=== PATIENT | female | born 1985 | race African-American/Black ===

== ENCOUNTER 2016-06-21 09:26 | Outpatient (CLI) ==
[2015-11-25 10:26] VITALS: BMI 20.8
[2016-06-21 11:10] LABS: BASOPHILS % (AUTO) 0.4 % (0.0-3.0); EOSINOPHILS % (AUTO) 0.1 % (0.0-7.0); HEMATOCRIT 29.8 % (37.0-47.0); HEMOGLOBIN 9.4 g/dl (12.0-16.0); IMMATURE GRANULOCYTE % (AUTO) 0.3 % (0.0-5.0); LYMPHOCYTES # (AUTO) 1.4 K/uL (0.60-3.4); LYMPHOCYTES % (AUTO) 20.8 (10.0-50.0); MEAN CORPUSCULAR HEMOGLOBIN 24.7 pg (27.0-31.0); MEAN CORPUSCULAR HGB CONC 31.5 (31.8-35.4); MEAN CORPUSCULAR VOLUME 78.4 fl (81.0-99.0); MONOCYTES # (AUTO) 0.5 K/uL (0.4-2.0); MONOCYTES % (AUTO) 6.8 (0-10); NEUTROPHILS # (AUTO) 4.8 K/ul (2.0-6.9); NEUTROPHILS % (AUTO) 71.6; PLATELET COUNT 154 10^3/uL (140-440); WHITE BLOOD COUNT 6.74 K/ul (4.6-10.2)
[2016-06-21 11:21] LABS: GLUCOSE 94 mg/dL (70-110)
[2016-06-24 10:03] LABS: HIV ANTIBODIES QUALITATIVE NON REACTIVE (Nonreactive)
== END 2016-06-21 09:27 | disposition home or self-care (01) ==
LOC: LAB 09:26
PROVIDERS: ATTEND Obstetrics & Gynecology
DX: Z36 Encounter for antenatal screening of mother (principal)
CPT/HCPCS: 36415; 82947; 85025; 86701

== ENCOUNTER 2016-06-23 00:15 | Emergency (ER) ==
--- NOTE | 2016-06-23 00:29 | ED.PDOC ---
General ED Provider: Dr. OSMAR OLEA-ER Chief Complaint: Labor Stated Complaint: my water broke 15 min ago--im having pain Time Seen by Physician: 00:27 Mode of Arrival: Walk-In Information Source: Patient, Family Primary Care Provider: KRUPA LEONG Nursing and Triage Documentation Reviewed and Agree: Yes POKER IN Complaint Exam - Labor/Delivery Complaint/Exam Onset/Duration: 15min Symptoms Are: Still present Timing: Intermittent Contraction Frequency: 5min Contractions Regular: No Initial Severity: Moderate Current Severity: Moderate Location: Reports: Low Abdomen Associated Signs and Symptoms: Denies: Vomiting, Diarrhea, Fever, Meconium, Gestational Hypertension, Gestational Diabetes, Pre-Eclampsia Vaginal Bleeding: None Patient Rh Status: Unknown Related Surgical History: Previous External Exam: Present: Normal findings Uterine Size: Term Amniotic Fluid: Present: Clear Cervical Dilation: 2 Presenting Part: Head Controlled Head Delivery: No Nuchal Cord: No Cord Clamped and Cut: No Placenta Delivered Intact: No Current Hypertension: No Current Seizure Activity: No Differential Diagnoses: Active Labor Review of Systems - Review Of Systems Constitutional: Reports: No symptoms Eyes: Reports: No symptoms Ears, Nose, Mouth, Throat: Reports: No symptoms Respiratory: Reports: No symptoms Cardiac: Reports: No symptoms GI: Reports: No symptoms : Reports: No symptoms Musculoskeletal: Reports: No symptoms Skin: Reports: No symptoms Neurological: Reports: No symptoms Endocrine: Reports: No symptoms Hematologic/Lymphatic: Reports: No symptoms All Other Systems: Reviewed and Negative Past Medical History - Past Medical History Previously Healthy: Yes Endocrine: Reports: None Cardiovascular: Reports: None Respiratory: Reports: None Hematological: Reports: None Gastrointestinal: Reports: None Genitourinary: Reports: None Neuro/Psych: Reports: None Musculoskeletal: Reports: None Cancer: Reports: None Other Pertinent Past Medical History: seasonal allergies - Surgical History General Surgical History: Reports: , Unknown - Family History Family History: Reports: Unknown (history of chronic low back pain due to coccyx fx) - Social History Smoking Status: Never smoker Hx Substance Use: No Alcohol Screening: None Physical Exam - Physical Exam Appearance: Well-appearing, No pain distress, Well-nourished Eyes: MEDHAT, EOMI, Conjunctiva clear ENT: Ears normal, Nose normal, Oropharynx normal Neck: Supple Respiratory: Airway patent Cardiovascular: RRR, Pulses normal, No rub, No murmur GI/: Soft, Nontender, No masses, Bowel sounds normal, No Organomegaly Musculoskeletal: Normal strength, ROM intact, No edema, No calf tenderness Skin: Warm, Dry, Normal color Neurological: Sensation intact, Motor intact, Reflexes intact, Cranial nerves intact, Alert, Oriented Psychiatric: Affect appropriate, Mood appropriate Physician Notification - Case Discussed Physician Notified: dr brunson Time of Notification: 00:33 Physician Notified: graciously accepted this patienht in transfer-pt admits she has twin gestat Critical Care Note - Critical Care Note Total Time (mins): 15 Course - Course Orders, Labs, Meds: Orders Category Date Time Status TRANSFER TO OUTSIDE FACILITY .TO [facility] 06/23/16 00:35 Active ([place], [place]) WRITE TRANSFER/SBAR NOTE ONCE CARE 06/23/16 00:35 Active DISCHARGE ASSESSMENT ONCE DISCHARGE 06/23/16 00:35 Active WRITE DISCHARGE NOTE ONCE DISCHARGE 06/23/16 00:35 Active IV [ED IV/MEDIPORT/POWERPORT] .ONCE EMERGENCY 06/23/16 00:30 Active 0.9 % Sodium Chloride [Saline Flush] MEDS 06/23/16 00:30 Ordered 1 syr IVF PRN PRN Ringers Lactated Solution [Lactated Ringers] 1,000 ml MEDS 06/23/16 00:52 Active IV 100 mls/hr Medications Generic Name Dose Route Start Last Admin Trade Name Freq PRN Reason Stop Dose Admin Lactated Ringer's 1,000 mls @ 100 mls/hr 06/23/16 00:52 Lactated Ringers IV 06/23/16 10:51 .Q10H STA Sodium Chloride 1 syr 06/23/16 00:30 Saline Flush IVF PRN PRN To flush IV Vital Signs: Temp Pulse Resp BP Pulse Ox 06/23/16 00:17 98.2 F 90 28 H 123/82 100 Departure - Departure Time of Disposition: 00:33 Disposition: TSF SHORT-TRM HOSP Discharge Problem: Instructions: (ED) Condition: Good Pt referred to PMD for follow-up: No Allergies/Adverse Reactions: Allergies amoxicillin trihydrate [From Augmentin] Adverse Reaction (Verified 06/23/16 00: 31) clindamycin Adverse Reaction (Verified 06/23/16 00:31) Penicillins Adverse Reaction (Verified 06/23/16 00:31) potassium clavulanate [From Augmentin] Adverse Reaction (Verified 06/23/16 00:31 ) Sulfa (Sulfonamide Antibiotics) Adverse Reaction (Verified 06/23/16 00:31) Tetracyclines Adverse Reaction (Verified 06/23/16 00:31) Home Medications: Ambulatory Orders Cetirizine HCl [Zyrtec] 10 mg PO DAILY 12/09/14 Transfer Form Completed: Yes Disposition Discussed With: Patient
[2016-06-23] MEDS ORDERED: LACTATED RINGERS 1,000 ML IV STA (00:52)
[2016-06-23 00:54] VITALS: TEMP 98.2; BMI 24.7
[2016-06-23 06:44] VITALS: BP 116/85
== END 2016-06-23 00:48 | disposition short-term general hospital (02) ==
LOC: ED 00:15
DX: O80 Encounter for full-term uncomplicated delivery (principal)
CPT/HCPCS: 96360; 99284; 99285

== ENCOUNTER 2016-06-23 00:41 | Outpatient (CLI) ==
[2016-06-23 00:54] VITALS: BMI 24.7
== END 2016-06-23 00:42 | disposition home or self-care (01) ==
LOC: AMBL 00:41
PROVIDERS: ATTEND Family Medicine
DX: O60.03 Preterm labor without delivery, third trimester (principal); Z3A.34 34 weeks gestation of pregnancy

== ENCOUNTER 2017-04-25 07:42 | Outpatient (CLI) | END 2017-04-25 07:43 | disposition home or self-care (01) | LOC: LAB 07:42 | PROVIDERS: ATTEND Family Medicine | DX: R68.89 Other general symptoms and signs (principal) | CPT/HCPCS: 87502; 87651 ==

== ENCOUNTER 2017-05-03 12:21 | Outpatient (CLI) ==
--- NOTE | 2017-05-03 15:21 | DI ---
EXAM: Chest two view, frontal and lateral views. HISTORY: Cough. COMPARISON: 09/11/2015. FINDINGS: The heart size is normal. There is no pulmonary vascular congestion. The lungs are clear . No pleural effusion or pneumothorax is seen. No acute osseous abnormality identified. Since the prior study, there has been no significant interval change. IMPRESSION: No acute cardiopulmonary process.
== END 2017-05-03 12:22 | disposition home or self-care (01) ==
LOC: RAD 12:21
PROVIDERS: ATTEND Family Medicine
DX: R05 Cough (principal); R68.89 Other general symptoms and signs

== ENCOUNTER 2018-03-24 20:12 | Emergency (ER) | payer MEDICAID, OTHER ==
[2018-03-24 20:20] VITALS: BP 114/83; TEMP 98.3; BMI 22.1
--- NOTE | 2018-03-24 20:45 | ED.PDOC ---
General ED Provider: Dr. JULIETA JACOBS Chief Complaint: Bite Stated Complaint: Patient comes to the Er with drainage on the left upper arm that started yesterday. It is painful and itchy. Describes the pain as buring, Drainage as purulent. Time Seen by Physician: 20:42 Mode of Arrival: Walk-In Information Source: Patient Exam Limitations: No limitations Primary Care Provider: BETHANIE SCHAEFER Nursing and Triage Documentation Reviewed and Agree: Yes Does patient meet sepsis criteria?: No System Inflammatory Response Syndrome: Not Applicable Sepsis Protocol: For patient's 13 years and over: Temp is 96.8 and below OR 101 and greater Pulse >90 BPM Resp >20/minute Acutely Altered Mental Status Are patient's symptoms suggestive of a new infection, such as: -Pneumonia -Skin, Soft Tissue -Endocarditis -UTI -Bone, Joint Infection -Implantable Device -Acute Abdominal Infection -Wound Infection -Meningitis -Blood Stream Catheter Infection -Unknown Skin Complaint Exam - Skin/Soft Tissue Complaint/Exam Onset/Duration: 1 day Symptoms Are: Still present Timing: Constant Initial Severity: Moderate Current Severity: Moderate Location: Left arm/ shoulder area Character: Reports: Redness, Swelling, Raised, Painful Aggravating: Reports: None Alleviating: Reports: None Associated Signs and Symptoms: Reports: Drainage (minimal clear ), Tenderness. Denies: Fever, Chills, Itching, Bruising, Red streaks, Joint swelling Related History: Denies: Similar episode, Recent trauma, Foreign body, Insect bite/sting, Recent Med change, Prior MRSA/VRE, Recent inpatient, Recent travel, Immunocompromised Related Surgical History: Reports: None Recent Exposure to Others w/Similar Symptoms: Yes Skin Findings: Present: Skin lesion, Weeping skin, Other (1 cm raised sessile flesh colored lesion that is tender to palpation oozes clear fluid when palpated. ) Differential Diagnoses: Abscess, Infection, Lymphadenitis, Lymphangitis, MRSA, Other (Allegic raction, Spider bite ) Review of Systems - Review Of Systems Constitutional: Reports: No symptoms Eyes: Reports: No symptoms Ears, Nose, Mouth, Throat: Reports: No symptoms Respiratory: Reports: No symptoms Cardiac: Reports: No symptoms GI: Reports: No symptoms : Reports: No symptoms Musculoskeletal: Reports: No symptoms Skin: Reports: Rash Neurological: Reports: No symptoms Endocrine: Reports: No symptoms Hematologic/Lymphatic: Reports: No symptoms All Other Systems: Reviewed and Negative Past Medical History - Past Medical History Previously Healthy: Yes Endocrine: Reports: None Cardiovascular: Reports: None Respiratory: Reports: None Hematological: Reports: None Gastrointestinal: Reports: None Genitourinary: Reports: None Neuro/Psych: Reports: None Musculoskeletal: Reports: None Cancer: Reports: None Last Menstrual Period: 2 WEEKS AGO Other Pertinent Past Medical History: seasonal allergies - Surgical History General Surgical History: Reports: , Unknown - Family History Family History: Reports: Unknown (history of chronic low back pain due to coccyx fx) - Social History Smoking Status: Never smoker Hx Substance Use: No Alcohol Screening: None - Immunizations Tetanus Shot up to Date: Yes Physical Exam - Physical Exam Appearance: Well-appearing, No pain distress, Well-nourished Eyes: MEDHAT, EOMI, Conjunctiva clear ENT: Ears normal, Nose normal, Oropharynx normal Respiratory: Airway patent, Breath sounds clear, Breath sounds equal, Respirations nonlabored Cardiovascular: RRR, Pulses normal, No rub, No murmur GI/: Soft, Nontender, No masses, Bowel sounds normal, No Organomegaly Musculoskeletal: Normal strength, ROM intact, No edema, No calf tenderness Skin: Dry Neurological: Sensation intact, Motor intact, Reflexes intact, Cranial nerves intact, Alert, Oriented Psychiatric: Anxious Critical Care Note - Critical Care Note Total Time (mins): 0 Course - Course Orders, Labs, Meds: Orders Category Date Time Status Azithromycin [Zithromax] MEDS 03/24/18 21:01 Discontinued 500 mg PO ONCE STA Benzonatate [Tessalon Perles] MEDS 03/24/18 21:03 Discontinued 100 mg PO ONCE STA Methylprednisolone Sod Succ/Pf [Solu-Medrol 125 mg] MEDS 03/24/18 21:01 Discontinued 125 mg IM ONCE STA Medications Discontinued Medications Generic Name Dose Route Start Last Admin Trade Name Freq PRN Reason Stop Dose Admin Azithromycin 500 mg 03/24/18 21:01 03/24/18 21:28 Zithromax PO 03/24/18 21:02 500 mg ONCE STA Administration Benzonatate 100 mg 03/24/18 21:03 03/24/18 21:28 Tessalon Perles PO 03/24/18 21:04 100 mg ONCE STA Administration Methylprednisolone Sodium Succinate 125 mg 03/24/18 21:01 01/12/19 21:29 Solu-Medrol 125 Mg IM 03/24/18 21:02 125 mg ONCE STA Administration Vital Signs: Temp Pulse Resp BP Pulse Ox 03/24/18 20:13 98.3 F 84 18 114/83 99 Departure - Departure Time of Disposition: 21:31 Disposition: HOME SELF-CARE Discharge Problem: Skin lesion of left arm Instructions: Dermatitis (ED) Condition: Stable Pt referred to PMD for follow-up: Yes IPMP verified?: No Additional Instructions: Take medications as prescribed Follow up with your PCP for Biopsy or referral to Dermatology Prescriptions: Azithromycin [Zithromax] 250 mg PO DIRECTED #4 tablet Benzonatate [Tessalon Perles] 100 mg PO TID PRN #25 capsule PRN Reason: Cold Symptons Prednisone 20 mg PO DAILYWM #5 tablet Allergies/Adverse Reactions: Allergies amoxicillin trihydrate [From Augmentin] Adverse Reaction (Verified 03/24/18 20: 21) clindamycin Adverse Reaction (Verified 03/24/18 20:21) Penicillins Adverse Reaction (Verified 03/24/18 20:21) potassium clavulanate [From Augmentin] Adverse Reaction (Verified 03/24/18 20:21 ) Sulfa (Sulfonamide Antibiotics) Adverse Reaction (Verified 03/24/18 20:21) Tetracyclines Adverse Reaction (Verified 03/24/18 20:21) Home Medications: Ambulatory Orders Cetirizine HCl [Zyrtec] 10 mg PO DAILY 12/09/14 Azithromycin [Zithromax] 250 mg PO DIRECTED #4 tablet 03/24/18 Benzonatate [Tessalon Perles] 100 mg PO TID PRN #25 capsule 03/24/18 Prednisone 20 mg PO DAILYWM #5 tablet 03/24/18 Disposition Discussed With: Patient
[2018-03-24] MEDS ORDERED: SOLU-MEDROL 125 MG IM STA (21:01)
[2018-03-24] MEDS ORDERED: ZITHROMAX PO STA (21:01)
[2018-03-24] MEDS ORDERED: TESSALON PERLES PO STA (21:03)
== END 2018-03-24 21:40 | disposition home or self-care (01) ==
LOC: ED 20:12
DX: L98.9 Disorder of the skin and subcutaneous tissue, unspecified (principal)
CPT/HCPCS: 96372; 99282

== ENCOUNTER 2018-05-27 15:15 | Emergency (ER) ==
[2018-05-27 15:15] VITALS: BMI 22.1
[2018-05-27 15:18] VITALS: BP 134/89; TEMP 97.5
--- NOTE | 2018-05-27 15:57 | ED.PDOC ---
General ED Provider: Dr. OSMAR GUTIERREZ Chief Complaint: Sore Throat Stated Complaint: Sore throat. Onset 2 days ago. Denies ear ache, fever or chills Time Seen by Physician: 15:30 Mode of Arrival: Walk-In Information Source: Patient Primary Care Provider: BETHANIE SCHAEFER Nursing and Triage Documentation Reviewed and Agree: Yes Does patient meet sepsis criteria?: No System Inflammatory Response Syndrome: Not Applicable Sepsis Protocol: For patient's 13 years and over: Temp is 96.8 and below OR 101 and greater Pulse >90 BPM Resp >20/minute Acutely Altered Mental Status Are patient's symptoms suggestive of a new infection, such as: -Pneumonia -Skin, Soft Tissue -Endocarditis -UTI -Bone, Joint Infection -Implantable Device -Acute Abdominal Infection -Wound Infection -Meningitis -Blood Stream Catheter Infection -Unknown EENT Complaint Exam - Throat Complaint/Exam Onset/Duration: 2 days Symptoms Are: Still present Timimg: Constant Initial Severity: Moderate Current Severity: Moderate Aggravating: Reports: Eating Alleviating: Reports: Antipyretics Associated Signs and Symptoms: Denies: Fever, Dysphagia, Drooling, Foreign body sensation, Chills, Cough, Wheezing, Hoarseness, Sinus discomfort, Nasal congestion, Difficulty breathing, Lethargy, Irritability, Decreased activity, Vomiting, Diarrhea, Decreased hearing, Ear drainage Uvula Midline: Yes Candy-tonsillar Fluctuence: No Scarlatinaform Rash Present: No Lesions: Absent: Lip, Pharynx Exanthem: Absent: Lip, Pharynx Stridor Present: No Sinus Tenderness Present: No Tonsillar Hypertrophy Present: No Tonsillar Exudate Present: No Candy-tonsillar Swelling Present: No Adenopathy Present: No Splenomegaly Present: No Differential Diagnoses: Influenza, Pharyngitis Review of Systems - Review Of Systems Constitutional: Reports: No symptoms Eyes: Reports: No symptoms Ears, Nose, Mouth, Throat: Reports: No symptoms, Throat pain Respiratory: Reports: No symptoms Cardiac: Reports: No symptoms GI: Reports: No symptoms : Reports: No symptoms Musculoskeletal: Reports: No symptoms Skin: Reports: No symptoms Neurological: Reports: No symptoms Endocrine: Reports: No symptoms Hematologic/Lymphatic: Reports: No symptoms All Other Systems: Reviewed and Negative Past Medical History - Past Medical History Previously Healthy: Yes Endocrine: Reports: None Cardiovascular: Reports: None Respiratory: Reports: None Hematological: Reports: None Gastrointestinal: Reports: None Genitourinary: Reports: None Neuro/Psych: Reports: None Musculoskeletal: Reports: None Cancer: Reports: None Last Menstrual Period: now Other Pertinent Past Medical History: seasonal allergies - Surgical History General Surgical History: Reports: , Unknown - Family History Family History: Reports: Unknown (history of chronic low back pain due to coccyx fx) - Social History Smoking Status: Never smoker Hx Substance Use: No Alcohol Screening: None Physical Exam - Physical Exam Appearance: Well-appearing, No pain distress, Well-nourished Ill-appearing: None Pain Distress: None Eyes: MEDHAT, EOMI, Conjunctiva clear ENT: Ears normal, Nose normal, Oropharynx normal, Erythema Respiratory: Airway patent, Breath sounds clear, Breath sounds equal, Respirations nonlabored Cardiovascular: RRR, Pulses normal, No rub, No murmur GI/: Soft, Nontender, No masses, Bowel sounds normal, No Organomegaly Musculoskeletal: Normal strength, ROM intact, No edema, No calf tenderness Skin: Warm, Dry, Normal color Neurological: Sensation intact, Motor intact, Reflexes intact, Cranial nerves intact, Alert, Oriented Psychiatric: Affect appropriate, Mood appropriate Critical Care Note - Critical Care Note Total Time (mins): 0 Course - Course Vital Signs: Temp Pulse Resp BP Pulse Ox 05/27/18 15:15 97.5 F L 78 18 134/89 96 Departure - Departure Time of Disposition: 17:00 Disposition: HOME SELF-CARE Discharge Problem: Pharyngitis, Sore throat Instructions: Pharyngitis (ED) Condition: Good Pt referred to PMD for follow-up: Yes IPMP verified?: No Additional Instructions: Rinse mouth with warm salt water Tylenol or advlil for pain as needed Antibiotics Prescriptions: Azithromycin [Zithromax] 250 mg PO DAILY #6 tablet Allergies/Adverse Reactions: Allergies amoxicillin trihydrate [From Augmentin] Adverse Reaction (Verified 05/27/18 15: 18) clindamycin Adverse Reaction (Verified 05/27/18 15:18) Penicillins Adverse Reaction (Verified 05/27/18 15:18) potassium clavulanate [From Augmentin] Adverse Reaction (Verified 05/27/18 15:18 ) Sulfa (Sulfonamide Antibiotics) Adverse Reaction (Verified 05/27/18 15:18) Tetracyclines Adverse Reaction (Verified 03/17/19 15:18) Home Medications: Ambulatory Orders Cetirizine HCl [Zyrtec] 10 mg PO DAILY 12/09/14 Azithromycin [Zithromax] 250 mg PO DAILY #6 tablet 05/27/18 Transfer Form Completed: No Disposition Discussed With: Patient
== END 2018-05-27 17:14 | disposition home or self-care (01) ==
LOC: ED 15:15
DX: J02.9 Acute pharyngitis, unspecified (principal)
CPT/HCPCS: 87502; 87651; 99283